=== PATIENT | female | born 1975 | race Caucasian/White ===

== ENCOUNTER → 2017-12-02 09:41 | Outpatient (CLI) | payer BC, SELFPAY ==
[2017-12-06 10:28] LABS: HPV Reflexed? NOT INDICATED
== END ==
PROVIDERS: Family Provider Family Medicine; PCP Family Medicine; Visit Provider Obstetrics & Gynecology
DX: Z12.4 Encounter for screening for malignant neoplasm of cervix (principal)
CPT/HCPCS: 88175; G0145

== ENCOUNTER → 2020-08-15 | Outpatient (CLI) | payer BC, SELFPAY ==
[2020-08-18 15:26] LABS: HPV Reflexed? NOT INDICATED
== END | disposition home or self-care (01) ==
LOC: LABSPEC 08-16 09:34
PROVIDERS: PCP Family Medicine; Visit Provider Obstetrics & Gynecology
DX: Z12.4 Encounter for screening for malignant neoplasm of cervix (principal)
CPT/HCPCS: 88175; G0145

== ENCOUNTER → 2025-01-26 | Outpatient (CLI) | payer OTHER, SELFPAY ==
--- NOTE | 2025-01-26 12:18 | NEURO ---
NCS and/or EMG Patient Report Ordering Doctor: Sera Nelson DATE OF SERVICE: 01/26/25 Tianna presents with numbness and tingling in both hands. Electrodiagnostic Findings: Right median motor nerve demonstrates prolonged latency normal amplitude and conduction velocity. Left median motor nerve demonstrates normal distal latency, amplitude and conduction velocity. Ulnar motor response is within normal limits bilaterally. Prolonged median sensory latency at the wrist bilaterally. Normal median and ulnar F?waves. Needle EMG testing was performed in the upper limbs. All muscles tested show no evidence of denervation with normal motor unit action potentials. Electrodiagnostic assessment: This is an abnormal study. 1. Electrodiagnostic findings suggestive of bilateral median mononeuropathy. This is consistent with a mild left carpal tunnel syndrome and a moderate right carpal tunnel syndrome. Multi Select Codes Neurology Neurology Interp Codes: 08798-54 Musc test done w/n test comp (interp) (2) and 10270-71 Nrv cndj test 9-10 studies (interp)
== END | disposition home or self-care (01) ==
PROVIDERS: PCP Family Medicine; Referring Provider Family Medicine; Visit Provider Family Medicine
DX: G56.03 Carpal tunnel syndrome, bilateral upper limbs (principal)
CPT/HCPCS: 95886; 95911